=== PATIENT | male | born 1980 | race Caucasian/White ===

== ENCOUNTER 2021-05-14 14:24 | Emergency (ER) | payer BC ==
[~2021-05-14] VITALS: Ht 170.2 cm; Wt 72.7 kg
[2021-05-14 14:40] VITALS: TEMP 98.9
[2021-05-14] MEDS ORDERED: PRILOSEC10 MG PO (16:47)
[2021-05-14] MEDS ORDERED: PEPCID 20MG TAB20 MG PO (16:47)
[2021-05-14 17:32] VITALS: BP 121/84; PULSE 84
== END 2021-05-14 17:33 | disposition home or self-care (01) ==
LOC: COL.ER 14:24
DX: T18.128A Food in esophagus causing other injury, initial encounter (principal)
CPT/HCPCS: J2405; J2704